=== PATIENT | female | born 1960 | race Caucasian/White ===

== ENCOUNTER 2020-09-20 08:23 | Inpatient (IN) | payer MEDICAID, OTHER ==
[~2020-09-20] VITALS: Ht 160 cm; Wt 83.0 kg
--- NOTE | 2020-09-20 08:27 | NUR ---
ASSUMED CARE OF PT. ROXANNE WORTHINGTON BEDSIDE. EKG COMPLETE
[2020-09-20] MEDS ORDERED: ICN FENTANYL 4MCG/ML IV IVPush STA (08:28)
[2020-09-20] MEDS ORDERED: LORazepam 2 MG/ML, 1ML IVPush ONE ×2 (08:30→09:00)
[2020-09-20] MEDS ORDERED: FENTANYL PF 100 MCG/2ML ONE (08:32)
[2020-09-20] MEDS ORDERED: LORazepam 2 MG/ML, 1ML ONE (08:33)
--- NOTE | 2020-09-20 08:59 | NUR ---
BEDSIDE NOW, UPDATED ON PT CONDITION, POC
[2020-09-20] MEDS ORDERED: PLEASE ENTER HEIGHT AND WEIGHT MC SCH (09:00)
[2020-09-20] MEDS ORDERED: FENTANYL PF 100 MCG/2ML IVPush ONE (09:00)
[2020-09-20] MEDS ORDERED: ARIP5TAB13 PO (09:07)
[2020-09-20] MEDS ORDERED: ALBU6.7H8 INH (09:12)
[2020-09-20] MEDS ORDERED: CITA20TA9 PO (09:13)
[2020-09-20] MEDS ORDERED: EPIN0.3P3 IM (09:14)
[2020-09-20] MEDS ORDERED: LINA5TAB PO (09:15)
[2020-09-20] MEDS ORDERED: GLIP10TA13 PO (09:16)
[2020-09-20] MEDS ORDERED: GABA300C PO (09:16)
[2020-09-20] MEDS ORDERED: HYDR50TA99 PO (09:19)
[2020-09-20] MEDS ORDERED: HYDR25TA6 PO (09:20)
[2020-09-20] MEDS ORDERED: LISI2.5T PO (09:21)
[2020-09-20] MEDS ORDERED: LORA-247 PO (09:21)
[2020-09-20] MEDS ORDERED: MELO7.5T31 PO (09:21)
[2020-09-20] MEDS ORDERED: METF10007 PO (09:23)
[2020-09-20] MEDS ORDERED: METH-640 PO (09:25)
[2020-09-20] MEDS ORDERED: MIRT-34 PO (09:26)
[2020-09-20] MEDS ORDERED: OMEP-110 PO (09:26)
[2020-09-20] MEDS ORDERED: TRAZ50TA66 PO (09:27)
[2020-09-20] MEDS ORDERED: SIMV20TA19 PO (09:27)
--- NOTE | 2020-09-20 09:56 | NUR ---
SBAR given to conchis
--- NOTE | 2020-09-20 10:04 | NUR ---
COVID/FLU SAMPLE COLLECTED. PT GOING TO CCU NOW.
[2020-09-20 10:09] LABS: ALANINE AMINOTRANSFERASE 26 U/L (12-78); ALBUMIN 2.9 g/dL (3.4-5.0); ANION GAP 7 mmol/L (5-15); CALCIUM 7.9 mg/dL (8.5-10.1); CHLORIDE 107 mmol/L (98-107); CREATININE 0.83 mg/dL (0.55-1.02)
[2020-09-20 10:14] LABS: ALKALINE PHOSPHATASE 78 U/L (45-117); BILIRUBIN,TOTAL 0.4 mg/dL (0.2-1.0); TOTAL PROTEIN 6.5 g/dL (6.4-8.2); TROPONIN I < 0.015 ng/mL (0.000-0.045)
[2020-09-20 10:15] LABS: MEAN CORPUSCULAR HEMOGLOBIN 29.4 pg (27.0-34.8); MEAN PLATELET VOLUME 8.9 fL (7.4-10.4); PLATELET COUNT 214 x10^3/uL (130-400); RED BLOOD COUNT 4.83 x10^6/uL (3.82-5.3); RED CELL DISTRIBUTION WIDTH 13.9 % (9.6-15.2)
--- NOTE | 2020-09-20 10:21 | NUR ---
collected flu/covid. nurse updated.
[2020-09-20 10:32] LABS: MD YES
[2020-09-20 10:36] LABS: BAND#(MANUAL) 4.32 x10^3/uL; BANDS%(MANUAL) 27 % (0-7); LYMPH#(MANUAL) 0.48 x10^3/uL (1-3.4); LYMPHS% (MANUAL) 3 % (22-44); METAMYELOCYTES# (MANUAL) 0.48 x10^3/uL (0-0); METAMYELOCYTES% (MANUAL) 3 % (0-1); MONOS% (MANUAL) 10 % (2-9); SEG#(MANUAL) 9.12 x10^3/uL (1.8-6.8); SEGS% (MANUAL) 57 % (42-75)
[2020-09-20 10:37] VITALS: BP 105/54
[2020-09-20 10:39] LABS: <RBC MORPHOLOGY> NORMAL
[2020-09-20 10:40] LABS: <PLATELET ESTIMATE> ADEQUATE; <PLT MORPHOLOGY> NORMAL PLT MORPH
[2020-09-20] MEDS ORDERED: DEXTROSE 4 GM TAB.CHEW PO PRN (11:00)
[2020-09-20] MEDS ORDERED: GLUCAGON 1 MG IM PRN (11:00)
[2020-09-20] MEDS: SODIUM CHLORIDE FLUSH 10ML SYR IVF SCH ×2 (11:00→20:19)
[2020-09-20] MEDS ORDERED: ONDANSETRON 2MG/ML, 2ML IVPush PRN (11:00)
[2020-09-20] MEDS ORDERED: DEXTROSE 50%, 50ML SYRINGE IVPush PRN (11:00)
[2020-09-20] MEDS: AZITHROMYCIN 500 MG in SODIUM CHLORIDE 0.9% 250 ML IV SCH (11:21)
[2020-09-20 11:22] LABS: RAPID INFLUENZA A Negative (Negative); RAPID INFLUENZA B Negative (Negative)
[2020-09-20] MEDS: CEFTRIAXONE PMX 2GM/50ML 50 ML IVPB SCH (11:22)
[2020-09-20] MEDS: LACTATED RINGERS 1,000 ML IV SCH (11:22)
[2020-09-20] MEDS: FAMOTIDINE 20 MG/2 ML IVPush SCH (11:37)
[2020-09-20] MEDS: INSULIN LISPRO 100 UNITS/ML, PEN SQ-INSULIN SCH ×3 (11:38→22:23)
[2020-09-20] MEDS: ENOXAPARIN 40 MG/0.4 ML SQ SCH (11:40)
[2020-09-20] MEDS: GABAPENTIN 300 MG CAPSULE PO SCH ×2 (14:52→20:19)
[2020-09-20] MEDS: METHOCARBAMOL 750 MG TABLET PO PRN (14:52)
[2020-09-21] MEDS: LACTATED RINGERS 1,000 ML IV SCH ×2 (00:20→17:37)
[2020-09-21] MEDS: METHOCARBAMOL 750 MG TABLET PO PRN ×3 (00:20→16:27)
[2020-09-21] MEDS: INSULIN LISPRO 100 UNITS/ML, PEN SQ-INSULIN SCH ×4 (04:27→23:10)
[2020-09-21 06:50] LABS: BASOPHILS % (AUTO) 0 % (0-1); EOSINOPHILS % (AUTO) 0 % (1-7); LYMPHOCYTES % (AUTO) 5 % (22-44); MEAN CORPUSCULAR HEMOGLOBIN 28.8 pg (27.0-34.8); MEAN CORPUSCULAR HGB CONC 33.1 g/dL (32.4-35.8); MEAN PLATELET VOLUME 8.6 fL (7.4-10.4); MONOCYTES % (AUTO) 4 % (2-9); NEUTROPHILS % (AUTO) 90 % (42-75); PLATELET COUNT 215 x10^3/uL (130-400); RED BLOOD COUNT 4.56 x10^6/uL (3.82-5.3); RED CELL DISTRIBUTION WIDTH 14.2 % (9.6-15.2)
[2020-09-21 06:51] LABS: MD NO
[2020-09-21 07:01] LABS: ANION GAP 3 mmol/L (5-15); CALCIUM 8.7 mg/dL (8.5-10.1); CHLORIDE 107 mmol/L (98-107); CREATININE 0.59 mg/dL (0.55-1.02)
[2020-09-21] MEDS: FAMOTIDINE 20 MG/2 ML IVPush SCH (08:41)
[2020-09-21] MEDS: GABAPENTIN 300 MG CAPSULE PO SCH ×3 (08:42→19:43)
[2020-09-21] MEDS: CITALOPRAM 20 MG TABLET PO SCH (08:42)
[2020-09-21] MEDS: SODIUM CHLORIDE FLUSH 10ML SYR IVF SCH ×2 (08:42→19:43)
[2020-09-21] MEDS: ARIPIPRAZOLE 5 MG TABLET PO SCH (08:42)
[2020-09-21] MEDS: CEFTRIAXONE PMX 2GM/50ML 50 ML IVPB SCH (10:24)
[2020-09-21] MEDS: AZITHROMYCIN 500 MG in SODIUM CHLORIDE 0.9% 250 ML IV SCH (11:14)
[2020-09-21] MEDS: ENOXAPARIN 40 MG/0.4 ML SQ SCH (11:32)
[2020-09-22] MEDS: METHOCARBAMOL 750 MG TABLET PO PRN ×2 (00:39→11:52)
[2020-09-22] MEDS: INSULIN LISPRO 100 UNITS/ML, PEN SQ-INSULIN SCH ×4 (05:22→20:47)
[2020-09-22] MEDS ORDERED: OXYcodone/APAP 5/325MG TABLET PO PRN (06:00)
[2020-09-22] MEDS: OXYcodone IR 5MG TABLET PO PRN ×3 (06:04→21:00)
[2020-09-22] MEDS: LACTATED RINGERS 1,000 ML IV SCH (07:30)
[2020-09-22] MEDS: SODIUM CHLORIDE FLUSH 10ML SYR IVF SCH ×2 (09:05→20:47)
[2020-09-22] MEDS: GABAPENTIN 300 MG CAPSULE PO SCH ×3 (09:05→20:47)
[2020-09-22] MEDS: ARIPIPRAZOLE 5 MG TABLET PO SCH (09:05)
[2020-09-22] MEDS: CITALOPRAM 20 MG TABLET PO SCH (09:06)
[2020-09-22] MEDS: FAMOTIDINE 20 MG TABLET PO SCH (09:06)
[2020-09-22] MEDS: CEFTRIAXONE PMX 2GM/50ML 50 ML IVPB SCH (11:45)
[2020-09-22] MEDS: ENOXAPARIN 40 MG/0.4 ML SQ SCH (11:45)
[2020-09-22] MEDS: AZITHROMYCIN 500 MG in SODIUM CHLORIDE 0.9% 250 ML IV SCH (12:41)
[2020-09-22 20:39] VITALS: BP 129/61
[2020-09-22] MEDS: methylPREDNISolone SOD SUCC 125 MG/2 ML IVPush SCH (20:47)
[2020-09-23 01:29] VITALS: BP 124/67
[2020-09-23] MEDS: methylPREDNISolone SOD SUCC 125 MG/2 ML IVPush SCH ×4 (01:29→20:56)
[2020-09-23 03:52] VITALS: BP 132/71
[2020-09-23 04:50] LABS: MEAN CORPUSCULAR HEMOGLOBIN 29.5 pg (27.0-34.8); MEAN PLATELET VOLUME 8.2 fL (7.4-10.4); PLATELET COUNT 249 x10^3/uL (130-400); RED BLOOD COUNT 4.41 x10^6/uL (3.82-5.3); RED CELL DISTRIBUTION WIDTH 13.7 % (9.6-15.2)
[2020-09-23 05:03] LABS: CHLORIDE 103 mmol/L (98-107)
[2020-09-23 05:12] LABS: ALANINE AMINOTRANSFERASE 35 U/L (12-78); ALBUMIN 2.4 g/dL (3.4-5.0); ALKALINE PHOSPHATASE 128 U/L (45-117); ANION GAP 9 mmol/L (5-15); BILIRUBIN,TOTAL 0.4 mg/dL (0.2-1.0); CALCIUM 9.1 mg/dL (8.5-10.1); CREATININE 0.55 mg/dL (0.55-1.02)
[2020-09-23] MEDS: OXYcodone IR 5MG TABLET PO PRN ×4 (05:43→22:14)
[2020-09-23 05:45] LABS: MD YES
[2020-09-23 05:46] LABS: <PLATELET ESTIMATE> ADEQUATE; <PLT MORPHOLOGY> NORMAL PLT MORPH; <RBC MORPHOLOGY> NORMAL; BANDS%(MANUAL) 2 % (0-7); LYMPHS% (MANUAL) 4 % (22-44); METAMYELOCYTES% (MANUAL) 2 % (0-1); MONOS% (MANUAL) 2 % (2-9); SEG#(MANUAL) 8.91 x10^3/uL (1.8-6.8); SEGS% (MANUAL) 90 % (42-75)
[2020-09-23] MEDS: ARIPIPRAZOLE 5 MG TABLET PO SCH (08:31)
[2020-09-23] MEDS: GABAPENTIN 300 MG CAPSULE PO SCH ×3 (08:31→20:56)
[2020-09-23] MEDS: CITALOPRAM 20 MG TABLET PO SCH (08:31)
[2020-09-23] MEDS: FAMOTIDINE 20 MG TABLET PO SCH (08:31)
[2020-09-23] MEDS: SODIUM CHLORIDE FLUSH 10ML SYR IVF SCH ×2 (08:32→20:57)
[2020-09-23] MEDS: INSULIN LISPRO 100 UNITS/ML, PEN SQ-INSULIN SCH ×4 (08:52→20:57)
[2020-09-23] MEDS: CEFTRIAXONE PMX 2GM/50ML 50 ML IVPB SCH (11:27)
[2020-09-23] MEDS: ENOXAPARIN 40 MG/0.4 ML SQ SCH (11:27)
[2020-09-23] MEDS: AZITHROMYCIN 500 MG in SODIUM CHLORIDE 0.9% 250 ML IV SCH (13:14)
[2020-09-23] MEDS ORDERED: ALBUTEROL HFA 90 MCG/SPRAY INH PRN (14:00)
[2020-09-23] MEDS: GUAIFENESIN 200 MG TABLET PO PRN ×2 (14:52→20:56)
[2020-09-23 18:48] VITALS: BP 123/76
[2020-09-23 20:00] VITALS: BP 114/73
[2020-09-23] MEDS: METHOCARBAMOL 750 MG TABLET PO PRN (20:56)
[2020-09-23] MEDS: INSULIN GLARGINE 100 UNITS/ML, PEN SQ-INSULIN SCH (22:16)
[2020-09-24 00:47] VITALS: BP 116/69
[2020-09-24 04:00] VITALS: BP 140/45
[2020-09-24] MEDS: GUAIFENESIN 200 MG TABLET PO PRN (04:50)
[2020-09-24] MEDS: OXYcodone IR 5MG TABLET PO PRN ×4 (04:51→21:33)
[2020-09-24] MEDS: METHOCARBAMOL 750 MG TABLET PO PRN ×2 (04:51→14:13)
[2020-09-24] MEDS: methylPREDNISolone SOD SUCC 125 MG/2 ML IVPush SCH (04:51)
[2020-09-24 05:29] LABS: MEAN CORPUSCULAR HEMOGLOBIN 29.2 pg (27.0-34.8); MEAN CORPUSCULAR HGB CONC 33.8 g/dL (32.4-35.8); MEAN PLATELET VOLUME 8.5 fL (7.4-10.4); PLATELET COUNT 297 x10^3/uL (130-400); RED BLOOD COUNT 4.61 x10^6/uL (3.82-5.3); RED CELL DISTRIBUTION WIDTH 14.1 % (9.6-15.2)
[2020-09-24 05:34] LABS: ANION GAP 6 mmol/L (5-15); CALCIUM 9.6 mg/dL (8.5-10.1); CHLORIDE 104 mmol/L (98-107)
[2020-09-24 05:35] LABS: CREATININE 0.76 mg/dL (0.55-1.02)
[2020-09-24 06:03] LABS: MD YES
[2020-09-24 06:05] LABS: BAND#(MANUAL) 0.13 x10^3/uL; BANDS%(MANUAL) 1 % (0-7); LYMPH#(MANUAL) 1.15 x10^3/uL (1-3.4); LYMPHS% (MANUAL) 9 % (22-44); METAMYELOCYTES# (MANUAL) 0.51 x10^3/uL (0-0); METAMYELOCYTES% (MANUAL) 4 % (0-1); MONOS#(MANUAL) 0.38 x10^3/uL (0.3-2.7); MONOS% (MANUAL) 3 % (2-9); MYELOCYTES# (MANUAL) 0.38 x10^3/uL (0-0); MYELOCYTES% (MANUAL) 3 % (0-0); SEG#(MANUAL) 10.24 x10^3/uL (1.8-6.8); SEGS% (MANUAL) 80 % (42-75)
[2020-09-24 06:06] LABS: <PLATELET ESTIMATE> ADEQUATE; <PLT MORPHOLOGY> NORMAL PLT MORPH; <RBC MORPHOLOGY> NORMAL
[2020-09-24 07:24] VITALS: BP 112/71
[2020-09-24] MEDS: ARIPIPRAZOLE 5 MG TABLET PO SCH (08:47)
[2020-09-24] MEDS: BENZONATATE 100 MG CAPSULE PO SCH ×3 (08:47→21:03)
[2020-09-24] MEDS: INSULIN LISPRO 100 UNITS/ML, PEN SQ-INSULIN SCH (08:47)
[2020-09-24] MEDS: CITALOPRAM 20 MG TABLET PO SCH (08:47)
[2020-09-24] MEDS: SODIUM CHLORIDE FLUSH 10ML SYR IVF SCH ×2 (08:47→21:03)
[2020-09-24] MEDS: FAMOTIDINE 20 MG TABLET PO SCH (08:47)
[2020-09-24] MEDS: GABAPENTIN 300 MG CAPSULE PO SCH ×3 (08:47→21:03)
[2020-09-24] MEDS: ENOXAPARIN 40 MG/0.4 ML SQ SCH (11:00)
[2020-09-24] MEDS: CEFTRIAXONE PMX 2GM/50ML 50 ML IVPB SCH (11:30)
[2020-09-24] MEDS: AZITHROMYCIN 500 MG in SODIUM CHLORIDE 0.9% 250 ML IV SCH (13:10)
[2020-09-24 13:48] VITALS: BP 125/75
[2020-09-24] MEDS: INSULIN REGULAR 100 UNITS/ML, 3ML VIAL SQ-INSULIN SCH ×3 (14:13→21:02)
[2020-09-24] MEDS ORDERED: INSULIN REGULAR 100 UNITS/ML, 3ML VIAL SQ-INSULIN SCH (16:00)
[2020-09-24 19:03] VITALS: BP 117/69
[2020-09-24] MEDS: INSULIN GLARGINE 100 UNITS/ML, PEN SQ-INSULIN SCH (21:03)
[2020-09-25 01:39] VITALS: BP 137/66
[2020-09-25] MEDS: METHOCARBAMOL 750 MG TABLET PO PRN (01:43)
[2020-09-25] MEDS: OXYcodone IR 5MG TABLET PO PRN ×5 (01:43→23:32)
[2020-09-25 07:43] VITALS: BP 136/82
[2020-09-25] MEDS: CITALOPRAM 20 MG TABLET PO SCH (08:23)
[2020-09-25] MEDS: BENZONATATE 100 MG CAPSULE PO SCH ×3 (08:23→20:16)
[2020-09-25] MEDS: FAMOTIDINE 20 MG TABLET PO SCH (08:23)
[2020-09-25] MEDS: GABAPENTIN 300 MG CAPSULE PO SCH ×3 (08:23→20:16)
[2020-09-25] MEDS: ARIPIPRAZOLE 5 MG TABLET PO SCH (08:23)
[2020-09-25] MEDS: INSULIN REGULAR 100 UNITS/ML, 3ML VIAL SQ-INSULIN SCH ×4 (08:28→20:17)
[2020-09-25] MEDS: SODIUM CHLORIDE FLUSH 10ML SYR IVF SCH ×2 (08:29→20:23)
[2020-09-25] MEDS ORDERED: ACETAMINOPHEN 325 MG TABLET PO PRN (10:00)
[2020-09-25] MEDS: CEFTRIAXONE PMX 2GM/50ML 50 ML IVPB SCH (11:16)
[2020-09-25] MEDS: ENOXAPARIN 40 MG/0.4 ML SQ SCH (11:20)
[2020-09-25 12:03] VITALS: BP 132/69
[2020-09-25] MEDS: LACTOBACILLUS CHEW TABLET PO SCH ×2 (16:46→20:16)
[2020-09-25 18:30] VITALS: BP 116/76
[2020-09-25] MEDS: INSULIN GLARGINE 100 UNITS/ML, PEN SQ-INSULIN SCH (20:19)
[2020-09-25 23:15] VITALS: BP 115/68
[2020-09-26 01:26] VITALS: BP 119/73
[2020-09-26 05:57] LABS: MEAN CORPUSCULAR HEMOGLOBIN 28.8 pg (27.0-34.8); MEAN CORPUSCULAR HGB CONC 33.6 g/dL (32.4-35.8); PLATELET COUNT 327 x10^3/uL (130-400); RED BLOOD COUNT 4.66 x10^6/uL (3.82-5.3); RED CELL DISTRIBUTION WIDTH 13.7 % (9.6-15.2)
[2020-09-26] MEDS: OXYcodone IR 5MG TABLET PO PRN (06:06)
[2020-09-26 06:21] LABS: MD YES
[2020-09-26 06:24] LABS: BAND#(MANUAL) 0.89 x10^3/uL; BANDS%(MANUAL) 7 % (0-7); LYMPH#(MANUAL) 2.79 x10^3/uL (1-3.4); LYMPHS% (MANUAL) 22 % (22-44); METAMYELOCYTES# (MANUAL) 0.38 x10^3/uL (0-0); METAMYELOCYTES% (MANUAL) 3 % (0-1); MONOS#(MANUAL) 0.89 x10^3/uL (0.3-2.7); MONOS% (MANUAL) 7 % (2-9); MYELOCYTES# (MANUAL) 0.38 x10^3/uL (0-0); MYELOCYTES% (MANUAL) 3 % (0-0); POLYCHROMASIA 1+; SEG#(MANUAL) 7.37 x10^3/uL (1.8-6.8); SEGS% (MANUAL) 58 % (42-75)
[2020-09-26 06:25] LABS: <PLATELET ESTIMATE> ADEQUATE; <PLT MORPHOLOGY> NORMAL PLT MORPH; TOXIC GRAN 1+
[2020-09-26 06:29] VITALS: BP 144/84
[2020-09-26] MEDS: LACTOBACILLUS CHEW TABLET PO SCH (07:57)
[2020-09-26] MEDS: ARIPIPRAZOLE 5 MG TABLET PO SCH (07:57)
[2020-09-26] MEDS: FAMOTIDINE 20 MG TABLET PO SCH (07:57)
[2020-09-26] MEDS: CITALOPRAM 20 MG TABLET PO SCH (07:57)
[2020-09-26] MEDS: BENZONATATE 100 MG CAPSULE PO SCH (07:57)
[2020-09-26] MEDS: GABAPENTIN 300 MG CAPSULE PO SCH (07:57)
[2020-09-26] MEDS: INSULIN REGULAR 100 UNITS/ML, 3ML VIAL SQ-INSULIN SCH ×2 (08:02→11:13)
[2020-09-26] MEDS: SODIUM CHLORIDE FLUSH 10ML SYR IVF SCH (08:03)
[2020-09-26] MEDS ORDERED: metFORMIN 500 MG TABLET PO SCH (09:00)
[2020-09-26] MEDS ORDERED: BISACODYL 10 MG SUPP PR ONE (09:00)
[2020-09-26] MEDS ORDERED: CEFDINIR 300 MG CAPSULE PO SCH (09:00)
[2020-09-26] MEDS: ENOXAPARIN 40 MG/0.4 ML SQ SCH (11:00)
[2020-09-26 12:08] VITALS: BP 132/78
[2020-09-26] MEDS ORDERED: INSU100V5 SQ-INSULIN (12:55)
[2020-09-26] MEDS ORDERED: [UNRECOGNIZED DRUG - CODE] (12:55)
[2020-09-26] MEDS ORDERED: CEFD300C37 PO (12:55)
[2020-09-26] MEDS ORDERED: ACID1TAB7 PO (12:55)
[2020-09-26] MEDS ORDERED: BLOO-1456 (12:55)
[2020-09-26] MEDS ORDERED: INSU100I13 SQ-INSULIN (12:55)
== END 2020-09-26 15:20 | disposition home or self-care (01) | DRG 871 ==
LOC: ED 08:36 → SUATTDRO 09:17 → EDIP 09:17 → CCU 10:15 → 4EST 09-23 18:48 → DCLOUNGE 09-26 15:15
PROVIDERS: ADMIT Internal Medicine; ATTEND Internal Medicine
PROC: 5A0935A Assistance with Respiratory Ventilation, Less than 24 Consecutive Hours, High Flow/Velocity Cannula (ICD-10-PCS; principal; 2020-09-20)
DX: A41.9 Sepsis, unspecified organism (principal); J96.01 Acute respiratory failure with hypoxia; J18.9 Pneumonia, unspecified organism; G93.41 Metabolic encephalopathy; E87.1 Hypo-osmolality and hyponatremia; J44.0 Chronic obstructive pulmonary disease with (acute) lower respiratory infection; J44.1 Chronic obstructive pulmonary disease with (acute) exacerbation; R65.20 Severe sepsis without septic shock; E11.40 Type 2 diabetes mellitus with diabetic neuropathy, unspecified; E11.649 Type 2 diabetes mellitus with hypoglycemia without coma; E11.65 Type 2 diabetes mellitus with hyperglycemia; E66.9 Obesity, unspecified; E78.5 Hyperlipidemia, unspecified; F17.200 Nicotine dependence, unspecified, uncomplicated; F32.9 Major depressive disorder, single episode, unspecified; F43.10 Post-traumatic stress disorder, unspecified; G47.33 Obstructive sleep apnea (adult) (pediatric); I10 Essential (primary) hypertension; K59.00 Constipation, unspecified; Z20.822 Contact with and (suspected) exposure to COVID-19; Z79.4 Long term (current) use of insulin; Z88.5 Allergy status to narcotic agent; Z88.0 Allergy status to penicillin
CPT/HCPCS: 36415; 36600; 71045; 80048; 80053; 82803; 82962; 83036; 83605; 84484; 85025; 87040; 87081; 87400; 93005; 96374; 96375; G0378; J0456; J0696; J1650; J1815; J2060; J2930; J7050; J7120; J7512; U0003